=== PATIENT | male | born 1985 | race Caucasian/White ===

== ENCOUNTER 2022-04-21 16:32 | Emergency (ER) | payer SELFPAY ==
[2022-04-22] MEDS ORDERED: ZOFRAN ODT 4 MG4 MG PO (12:09)
[2022-04-22] MEDS ORDERED: BENTYL 20MG TAB20 MG PO (12:09)
== END 2022-04-22 01:00 | disposition left against medical advice (07) ==
LOC: ER1 16:32
DX: Z53.21 Procedure and treatment not carried out due to patient leaving prior to being seen by health care provider (principal)

== ENCOUNTER 2022-04-22 09:21 | Emergency (ER) | payer OTHER ==
[2022-04-22 10:03] LABS: HEMOGLOBIN 16.5 gm/dl (14.0-17.5); RED BLOOD COUNT 5.48 M/UL (4.20-5.50); WHITE BLOOD COUNT 6.2 K/UL (4.5-11.0)
[2022-04-22 10:21] LABS: BUN/CREATININE RATIO 13 (0-10)
[2022-04-22] MEDS ORDERED: ZOFRAN ODT 4 MG4 MG PO (12:09)
[2022-04-22] MEDS ORDERED: BENTYL 20MG TAB20 MG PO (12:09)
== END 2022-04-22 12:22 | disposition home or self-care (01) ==
LOC: ER1 09:21
PROVIDERS: Physician Assistant
DX: R10.9 Unspecified abdominal pain (principal); R11.0 Nausea; R19.7 Diarrhea, unspecified; R10.811 Right upper quadrant abdominal tenderness; Z88.0 Allergy status to penicillin
CPT/HCPCS: 80053; 81001; 83690; 85025; 99284; Q9967